=== PATIENT | male | born 2000 | race Caucasian/White ===

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

== ENCOUNTER 2021-05-27 14:08 | Emergency (ER) | payer MEDICAID ==
[2021-05-27 14:35] VITALS: BP 140/89; PULSE 78; O2SAT 97
--- NOTE | 2021-05-27 14:44 | ERPHSYRPT ---
- History of Present Illness Time Seen by Provider: 05/27/21 14:15 Source: patient Exam Limitations: no limitations Patient Subjective Stated Complaint: Rash Triage Nursing Assessment: Patient ambulated back to ED and transferred self to bed. Patient A+O X3. Patient's skin pink, warm and dry. Patient complains of rash to left side of face beside eye. Patient states he thinks he is having an allergic reaction to some type of lotion his girlfriend used. Patient states the rash appeared 4 days and is painful 4/10. Patient has redness to skin of face beside left eye. Physician History: 20-year-old presented to the ER with chief complaint of rash lateral to left thigh for the last 4 days after he applied a new lotion in the area as he recently has eyebrow piercing done and also applied on the chest. Both areas developed rash in few hours and the 1 on the chest improved but facial is still there with burning, itching sensation and some redness. No difficulty movements of eyeball. No upper or lower lid swelling. Up-to-date with immunizations. Timing/Duration: day(s) (4), gradual onset, worse Quality: burning, itchy Severity: moderate Location: face Possible Causes: other Associated Symptoms: rash Allergies/Adverse Reactions: No Known Drug Allergies Allergy (Verified 05/27/21 14:28) Hx Influenza Vaccination/Date Given: Yes Hx Pneumococcal Vaccination/Date Given: No Immunizations Up to Date: Yes Travel Risk - International Travel Have you traveled outside of the country in past 3 weeks: No - Coronavirus Screening Are you exhibiting any of the following symptoms?: No Close contact with a COVID-19 positive Pt in past 14-21 Days: No - Vaccine Status Have you recieved a Covid-19 vaccination: Yes [employer]: [employer] - Vaccination Dates Date of 2cond Vaccination (if applicable): January 2021 - Review of Systems Constitutional: No Symptoms Eyes: No Symptoms Ears, Nose, & Throat: No Symptoms Respiratory: No Symptoms Cardiac: No Symptoms Musculoskeletal: No Symptoms Skin: Rash Neurological: No Symptoms Psychological: No Symptoms Endocrine: No Symptoms - Past Medical History Pertinent Past Medical History: Yes Psycho-Social History: Other - Past Surgical History Past Surgical History: No - Social History Smoking Status: Never smoker Exposure to second hand smoke: Yes Drug Use: none Patient Lives Alone: No - Nursing Vital Signs Nursing Vital Signs: Initial Vital Signs Temperature 97.2 F 05/27/21 14:29 Pulse Rate 78 05/27/21 14:29 Respiratory Rate 18 05/27/21 14:29 Blood Pressure 140/89 05/27/21 14:29 O2 Sat by Pulse Oximetry 98 05/27/21 14:29 Pain Scale Pain Intensity 4 - Physical Exam General Appearance: no apparent distress, alert Eye Exam: PERRL/EOMI, eyes nml inspection, other (Mild erythema, scabbing and irritation lateral to left eye and some on the lateral eyebrow area where piercing is done. minimal tenderness. No swelling of fibroarea with piercing. Partially scabbing.) Neck Exam: normal inspection, non-tender, supple, full range of motion Respiratory Exam: normal breath sounds, lungs clear Cardiovascular Exam: regular rate/rhythm, normal heart sounds Back Exam: normal inspection, normal range of motion Neurologic Exam: alert, oriented x 3, cooperative, patrol supervisor II-XII nml as tested Skin Exam: normal color SpO2 Interpretation: normal SpO2: 97 O2 Delivery: Room Air - Progress Progress: unchanged Progress Note: 05/27/21 14:43 I believe patient has allergic reaction to the new lotion which she is advised not to use anymore. We will give him Benadryl to take as needed and since it is close to the eye, will give prophylactic antibiotics. Discussed signs symptoms of worsening needing return to ER which he seems understanding. Does not think periorbital cellulitis at present. Counseled pt/family regarding: diagnosis, need for follow-up - Departure Departure Disposition: Home Clinical Impression: Allergic contact dermatitis due to chemical Condition: Stable Critical Care Time: No Referrals: ALDO MARTÍNEZ [Primary Care Provider] - Follow up/PCP as directed (In 2 days for reevaluation) Instructions: Contact Dermatitis (DC) Additional Instructions: Do not use lotion causing reaction again. Use Benadryl as needed. Continue with antibiotics. Return to ER if having worsening of rash, burning, difficulty movements of eyeball or if having swelling of upper or lower lids. Prescriptions: Diphenhydramine HCl 25 mg [Benadryl 25 mg Capsule] 25 mg PO Q4H PRN PRN #20 cap PRN Reason: Allergies Cephalexin Mh 500 mg [Keflex 500 mg] 500 mg PO TID #21 cap
== END 2021-05-27 14:59 | disposition home or self-care (01) ==
LOC: ED 14:08
DX: L23.3 Allergic contact dermatitis due to drugs in contact with skin (principal)
CPT/HCPCS: 99283

== ENCOUNTER 2022-07-05 15:25 | Emergency (ER) | payer MEDICAID ==
[2022-07-05] MEDS ORDERED: BABY ASPIRIN 81 MG CHEW PO ONE (15:37)
--- NOTE | 2022-07-05 15:37 | ERPHSYRPT ---
- History of Present Illness Time Seen by Provider: 07/05/22 15:37 Historian: patient Exam Limitations: no limitations Physician History: This is a 21-year-old white male who presents with 1 week of intermittent substernal central chest pain that he describes as mild pressure. Today, it became more constant and he was concerned. He denies shortness of breath. He has no coronary artery disease history. He has no bleeding or clotting disorders. Patient denies any new stressors. He denies illicit drug use. Timing/Duration: week(s) (1), intermittent, worse Activities at Onset: none Quality: pressure Location: substernal, central Chest Pain Radiation: no radiation Severity of Pain-Max: mild Severity of Pain-Current: mild Modifying Factors: Improves With: nothing Associated Symptoms: denies symptoms Prior Chest Pain/Cardiac Workup: no prior chest pain, no prior cardiac workup Nitro Today/Relief: no nitro taken today Aspirin Treatment Today: 81 mg x 4, provided by ED Allergies/Adverse Reactions: No Known Drug Allergies Allergy (Verified 07/05/22 15:33) Home Medications: No Reportable Medications [No Reported Medications] 07/05/22 [History] Hx Influenza Vaccination/Date Given: Yes Hx Pneumococcal Vaccination/Date Given: No Travel Risk - International Travel Have you traveled outside of the country in past 3 weeks: No - Coronavirus Screening Are you exhibiting any of the following symptoms?: No Close contact with a COVID-19 positive Pt in past 14-21 Days: No - Vaccine Status Have you recieved a Covid-19 vaccination: Yes [employer]: [employer] - Vaccination Dates Date of 2cond Vaccination (if applicable): January 2021 - Review of Systems Constitutional: No Symptoms Eyes: No Symptoms Ears, Nose, & Throat: No Symptoms Respiratory: No Symptoms Cardiac: Chest Pain Abdominal/Gastrointestinal: No Symptoms Genitourinary Symptoms: No Symptoms Musculoskeletal: No Symptoms Skin: No Symptoms Neurological: No Symptoms Psychological: No Symptoms Endocrine: No Symptoms Hematologic/Lymphatic: No Symptoms Immunological/Allergic: No Symptoms All Other Systems: Reviewed and Negative - Past Medical History Pertinent Past Medical History: Yes Psycho-Social History: Other - Past Surgical History Past Surgical History: No - Social History Smoking Status: Never smoker Exposure to second hand smoke: Yes Drug Use: none Patient Lives Alone: No - Nursing Vital Signs Nursing Vital Signs: Initial Vital Signs Temperature 97.9 F 07/05/22 15:34 Pulse Rate 107 H 07/05/22 15:34 Respiratory Rate 27 H 07/05/22 15:34 Blood Pressure 104/74 07/05/22 15:34 O2 Sat by Pulse Oximetry 96 07/05/22 15:34 Pain Scale Pain Intensity 5 - Physical Exam General Appearance: no apparent distress, alert, anxiety Eye Exam: PERRL/EOMI, eyes nml inspection Ears, Nose, Throat Exam: normal ENT inspection, moist mucous membranes Neck Exam: normal inspection, non-tender, supple, full range of motion Respiratory Exam: normal breath sounds, chest tenderness, lungs clear, airway intact, No respiratory distress Cardiovascular Exam: regular rate/rhythm, normal heart sounds, normal peripheral pulses Gastrointestinal/Abdomen Exam: soft, normal bowel sounds, No tenderness Rectal Exam: not done Back Exam: normal inspection, normal range of motion, No CVA tenderness Extremity Exam: normal inspection, normal range of motion, pelvis stable Neurologic Exam: alert, oriented x 3, cooperative, 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 12- lead EKG was interpreted by me.) Ordered Tests: Active Orders 24 hr Category Date Time Status EKG-ER Only STAT Care 07/05/22 15:37 Active IV Insertion STAT Care 07/05/22 15:37 Active CBC W DIFF Stat Lab 07/05/22 15:54 Completed CMP Stat Lab 07/05/22 15:54 Completed D-DIMER QUANTITATIVE Stat Lab 07/05/22 15:54 Completed TROPONIN Q4H Lab 07/05/22 15:54 Completed TROPONIN Q4H Lab 07/05/22 19:45 Ordered TROPONIN Q4H Lab 07/05/22 23:45 Ordered Medication Summary Discontinued Medications Generic Name Dose Route Start Last Admin Trade Name Freq PRN Reason Stop Dose Admin Aspirin 324 mg 07/05/22 15:37 07/05/22 15:46 Aspirin 81 Mg Tab.Chew PO 07/05/22 15:38 324 mg STAT ONE Administration Aspirin Confirm 07/05/22 15:45 Aspirin 81 Mg Tab.Chew Administered 07/05/22 15:46 Dose 324 mg .ROUTE .STK-MED ONE Lab/Rad Data: Laboratory Result Diagrams 07/05/22 15:54 07/05/22 15:54 Laboratory Results 07/05/22 07/05/22 07/05/22 Range/Units 15:54 15:54 15:54 WBC (4.0-10.5) x10^3/uL RBC (4.1-5.6) x10^6/uL Hgb (12.5-18.0) g/dL Hct (42-50) % MCV (78-100) fL MCH (26-32) pg MCHC (32-36) g/dL RDW (11.5-14.0) % Plt Count (150-450) x10^3/uL MPV (7.5-11.0) fL Gran % (36.0-66.0) % Immature Gran % (Auto) (0.00-0.4) % Nucleat RBC Rel Count (0.00-0.1) % Eos # (Auto) (0-0.5) x10^3/uL Immature Gran # (Auto) (0.00-0.03) x10^3u/L Absolute Lymphs (auto) (1.0-4.6) x10^3/uL Absolute Monos (auto) (0.0-1.3) x10^3/uL Absolute Nucleated RBC (0.00-0.01) x10^3u/L Lymphocytes % (24.0-44.0) % Monocytes % (0.0-12.0) % Eosinophils % (0.00-5.0) % Basophils % (0.0-0.4) % Absolute Granulocytes (1.4-6.9) x10^3/uL Basophils # (0-0.4) x10^3/uL D-Dimer < 0.19 (0.0-0.50) mg/L Sodium 140 (137-145) mmol/L Potassium 3.4 L (3.5-5.1) mmol/L Chloride 108 H (98-107) mmol/L Carbon Dioxide 24 (22-30) mmol/L Anion Gap 10.5 (5-15) MEQ/L BUN 13 (9-20) mg/dL Creatinine 0.96 (0.66-1.25) mg/dL Estimated GFR > 60.0 ML/MIN Glucose 93 (74-106) mg/dL Calcium 9.0 (8.4-10.2) mg/dL Total Bilirubin 1.00 (0.2-1.3) mg/dL AST 274 H (17-59) U/L ALT 75 H (0-50) U/L Alkaline Phosphatase 125 (38-126) U/L Troponin I < 0.012 (0.000-0.034) ng/mL Serum Total Protein 7.2 (6.3-8.2) g/dL Albumin 4.4 (3.5-5.0) g/dL 07/05/22 Range/Units 15:54 WBC 8.0 (4.0-10.5) x10^3/uL RBC 5.06 (4.1-5.6) x10^6/uL Hgb 15.2 (12.5-18.0) g/dL Hct 44.9 (42-50) % MCV 88.7 (78-100) fL MCH 30.0 (26-32) pg MCHC 33.9 (32-36) g/dL RDW 12.8 (11.5-14.0) % Plt Count 285 (150-450) x10^3/uL MPV 10.2 (7.5-11.0) fL Gran % 54.0 (36.0-66.0) % Immature Gran % (Auto) 0.2 (0.00-0.4) % Nucleat RBC Rel Count 0.0 (0.00-0.1) % Eos # (Auto) 0.16 (0-0.5) x10^3/uL Immature Gran # (Auto) 0.02 (0.00-0.03) x10^3u/L Absolute Lymphs (auto) 2.65 (1.0-4.6) x10^3/uL Absolute Monos (auto) 0.82 (0.0-1.3) x10^3/uL Absolute Nucleated RBC 0.00 (0.00-0.01) x10^3u/L Lymphocytes % 33.0 (24.0-44.0) % Monocytes % 10.2 (0.0-12.0) % Eosinophils % 2.0 (0.00-5.0) % Basophils % 0.6 (0.0-0.4) % Absolute Granulocytes 4.34 (1.4-6.9) x10^3/uL Basophils # 0.05 (0-0.4) x10^3/uL D-Dimer (0.0-0.50) mg/L Sodium (137-145) mmol/L Potassium (3.5-5.1) mmol/L Chloride (98-107) mmol/L Carbon Dioxide (22-30) mmol/L Anion Gap (5-15) MEQ/L BUN (9-20) mg/dL Creatinine (0.66-1.25) mg/dL Estimated GFR ML/MIN Glucose (74-106) mg/dL Calcium (8.4-10.2) mg/dL Total Bilirubin (0.2-1.3) mg/dL AST (17-59) U/L ALT (0-50) U/L Alkaline Phosphatase (38-126) U/L Troponin I (0.000-0.034) ng/mL Serum Total Protein (6.3-8.2) g/dL Albumin (3.5-5.0) g/dL - Progress Progress: improved, re-examined Air Movement: good Progress Note: 07/05/22 16:53 Heart rate at the time of discharge is in the 90s and is a normal sinus rhythm on the cardiac cath tech. Patient denies chest pain at this time. Patient's medical issue today is of moderate complexity. Differential includes anxiety, electrolyte abnormalities, myocardial infarction that is acute, abnormal heart rhythm and possible pulmonary embolus and stressors. The patient's complaint, history, physical findings prompted twelve-lead EKG, lab work and placement on cardiac cath tech while he is in the emergency department. The results were reviewed by me as well as with the patient. Based on the results of the work-up, the discharge plan was made by me and discussed with the patient. He will follow-up with his primary care provider for further evaluation management. Blood Culture(s) Obtained: No Antibiotics given: No Counseled pt/family regarding: lab results, diagnosis, need for follow-up Medical Desision Making - Discussion of managment Reviewed:: Test results (Discussed with the patient), Need for additional workup (Discussed with the patient) Agreed on:: Treatment plan (Discussed with the patient), need for follow-up (Discussed with the patient) - Diagnostic Testing Diagnostic Testing: Diagnostic tests were ordered,analyzed, and reviewed by me and used in my medical decision making for this patient. Radiologic studies (if ordered) were read by me initially then discussed with the radiologist . - Risk of complications Low Risk: Low risk of morbidity from additional dx testing or treatment - Departure Departure Disposition: Home Clinical Impression: Non-cardiac chest pain Condition: Stable Critical Care Time: No Referrals: ALDO MARTÍNEZ [Primary Care Provider] - Follow up/PCP as directed Additional Instructions: Continue all your medication as prescribed. Decrease your nicotine or caffeine intake. Follow-up with your primary care physician for further evaluation and management.
[2022-07-05] MEDS ORDERED: BABY ASPIRIN 81 MG CHEW ONE (15:45)
[2022-07-05 15:52] LABS: Absolute Neutrophil Ct (ANC) 4.34 x10^3/uL (1.4-6.9); BASOPHIL % 0.6 % (0.0-0.4); Basophil (Absolute #) 0.05 x10^3/uL (0-0.4); Eosinophil (Absolute #) 0.16 x10^3/uL (0-0.5); Hematocrit 44.9 % (42-50); Hemoglobin 15.2 g/dL (12.5-18.0); IMMATURE GRAN # 0.02 x10^3u/L (0.00-0.03); IMMATURE GRAN % 0.2 % (0.00-0.4); Lymphocyte (Absolute #) 2.65 x10^3/uL (1.0-4.6); Mean Cell Volume 88.7 fL (78-100); Mean Corpuscular Hgb Concent. 33.9 g/dL (32-36); Mean Platelet Volume 10.2 fL (7.5-11.0); Monocyte (Absolute #) 0.82 x10^3/uL (0.0-1.3); Monocytes % 10.2 % (0.0-12.0); Platelet Count 285 x10^3/uL (150-450); Red Blood Count 5.06 x10^6/uL (4.1-5.6); Red Cell Distribution Width 12.8 % (11.5-14.0)
[2022-07-05 16:06] LABS: ALBUMIN 4.4 g/dL (3.5-5.0); ALKALINE PHOSPHATASE 125 U/L (38-126); ANION GAP 10.5 MEQ/L (5-15); BLOOD UREA NITROGEN 13 mg/dL (9-20); CHLORIDE 108 mmol/L (98-107); Carbon Dioxide 24 mmol/L (22-30); Creatinine 1 0.96 mg/dL (0.66-1.25); EST GLOMERULAR FILTRATION RATE > 60.0 ML/MIN; Glucose 93 mg/dL (74-106); Potassium 3.4 mmol/L (3.5-5.1); SGOT/AST 274 U/L (17-59); SGPT/ALT 75 U/L (0-50); SODIUM 140 mmol/L (137-145); Total Protein 7.2 g/dL (6.3-8.2)
[2022-07-05 17:03] VITALS: BP 134/94; PULSE 88; O2SAT 97
== END 2022-07-05 17:06 | disposition home or self-care (01) ==
LOC: ED 15:25
DX: R07.89 Other chest pain (principal)
CPT/HCPCS: 36000; 36415; 80053; 84484; 85025; 85379; 93005; 99284; A9270-GY